=== PATIENT | female | born 1985 | race Caucasian/White ===

== ENCOUNTER 2020-12-15 09:43 | Emergency (ER) | payer BC, SELFPAY ==
--- NOTE | ~2020-12-15 | CT_ITS ---
EXAMINATION: CT ABDOMEN AND PELVIS WITHOUT CONTRAST CLINICAL INFORMATION: Epigastric pain and vomiting. Evaluate for obstruction. COMPARISON: Previous ultrasound from earlier the same day and CT of the abdomen and pelvis most recent March 2018 TECHNIQUE: Multidetector volumetric imaging was performed from the superior aspect of the liver through the pubic symphysis. Sagittal and coronal reformatted images were obtained on the technologist's workstation. This CT examination was performed using dose optimization techniques as appropriate, variously including the following: *Automated exposure control *Adjustment of mA and/or kV according to patient size (this includes techniques or standardized protocols for targeted exams where dose is matched to indication/reason for exam; i.e. extremities or head) *Use of iterative reconstruction technique DLP: 1107 mGy-cm FINDINGS: LUNG BASES: The visualized lung bases are unremarkable. LIVER, GALLBLADDER, AND BILIARY TREE: The liver is normal in size, shape, and attenuation. No focal hepatic lesion or biliary ductal dilatation is present. The gallbladder is unremarkable with no evidence of radiopaque gallstones, gallbladder wall thickening, or obvious pericholecystic inflammatory changes. PANCREAS: Unremarkable. SPLEEN: There is a small calcification with lucent center in the spleen that is stable and probably represents a cyst wall calcification.. ADRENAL GLANDS: Unremarkable. KIDNEYS AND URETERS: The kidneys are normal in size, shape, and attenuation. No hydronephrosis, hydroureter, or calculi seen. No perinephric stranding. BLADDER: Not optimally distended but appears unremarkable. GASTROINTESTINAL TRACT: There is mild diverticulosis of the colon. There is stool proximal colon questionable for mild constipation. No evidence of obstruction seen. The small and large bowel are otherwise unremarkable. The appendix is not identified and may been removed. The stomach is unremarkable. ABDOMINAL WALL: There is a small umbilical hernia containing fat. LYMPH NODES: Normal. VASCULAR: Unremarkable. PELVIC VISCERA: Unremarkable. OSSEOUS STRUCTURES: There is degenerative disc disease at L5-S1. CT/CT abdomen pelvis wo con IMPRESSION: No acute findings. Diverticulosis of the colon. No evidence of diverticulitis. Question mild constipation. No evidence of obstruction.
--- NOTE | ~2020-12-15 | US_ITS ---
EXAMINATION: US ABDOMEN LIMITED CLINICAL INFORMATION: Right upper quadrant and epigastric pain. COMPARISON: Previous CT of the abdomen and pelvis March 2018 TECHNIQUE: Real-time imaging of the right upper quadrant abdominal viscera. FINDINGS: PANCREAS: Normal. LIVER: The liver is normal in size. The liver contour is normal. Liver echotexture is slightly increased. No focal hepatic lesion. There is no intrahepatic biliary duct dilatation seen. GALLBLADDER: Normal. The gallbladder is physiologically distended without evidence of stones, sludge, polyps, wall thickening or pericholecystic fluid. COMMON BILE DUCT: Normal in caliber measuring 0.5 cm in diameter. RIGHT KIDNEY: Normal. No hydronephrosis. No renal calculi or focal parenchymal lesions. The kidney measures 13.6 cm in maximum dimension. FREE FLUID: None. US/US abdomen limited IMPRESSION: Slightly echogenic liver probably representing fatty infiltration. Otherwise unremarkable exam.
[2020-12-15 09:55] VITALS: BP 195/110; PULSE 93; RESP 20; TEMP 37.1; O2SAT 98; BMI 39.9
--- NOTE | 2020-12-15 10:15 | ED_ITS ---
HPI - Abdominal Pain General Chief Complaint: Abdominal Pain Stated Complaint: abd pain Time Seen by Provider: 12/15/20 10:15 Source: patient Mode of arrival: ambulatory Limitations: no limitations History of Present Illness HPI narrative: 35 yo female with chronic abdominal pain and issues with no real diagnosis here with 12 hours of nausea, constipation then a bout of stool, upper abdominal pain had anesthesia and started on keflex yesterday for dental procedure MD elicited complaint: abdominal pain Pertinent past history: other (chronic abdominal pain GI issues) Onset (ago): hour(s) (12) Pain Consistency: constant Location: epigastric Severity: severe Quality: cramping and aching Radiation: none Migration to: no migration Exacerbating factors: eating and movement Context: history of similar episodes (but milder and the pain usually moves down by now) Associated symptoms: nausea, diarrhea and constipation Related Data Previous Rx's Medication Instructions Recorded famotidine [Pepcid] 20 mg PO DAILY PRN #30 tab 12/15/20 lactulose 10 g PO DAILY PRN #600 ml 12/15/20 metoclopramide HCl [Reglan] 10 mg PO Q6H PRN #30 tab 12/15/20 Allergies Allergy/AdvReac Type Severity Reaction Status Date / Time Penicillins [PENICILLINS] Allergy Unknown HIVES Verified 12/15/20 10:34 clindamycin Allergy Abdominal Verified 12/15/20 10:34 Pain azithromycin [AZITHROMYCIN] AdvReac Unknown ABD PAIN Verified 12/15/20 10:34 TROPICAL FRUIT Allergy Unknown HIVES Uncoded 12/15/20 10:34 Review of Systems Review of Systems Constitutional : No Weight loss, No Fever, No Chills ENT/Mouth : No sore throat, No Rhinorrhea Eyes: No Swelling, No Redness Cardiovascular : No Chest Pain, No SOB, NoEdema Respiratory : No Cough, No Sputum, No Wheezing Gastrointestinal : Positive Nausea, Positive Vomiting, positive Diarrhea, positive abdominal Pain, No Hematochezia, No Melena Genitourinary : No Dysuria, No Urinary Frequency, No Hematuria, No Urgency Musculoskeletal : No joint pain, No Myalgias, No Joint Swelling Skin : No Skin Lesions, No rash Neuro : No Weakness, No Numbness, No Dizziness, No Headache Psych : No Anxiety/Panic, No Depression Heme/Lymph: No Bruising, No Lymphadenopathy Endocrine : No Polyuria, No Polydipsia All other systems reviewed and are negative. Physical Exam Vital Signs: Vital Signs: Last Vital Signs Temp 98.5 F 12/15/20 16:00 Pulse 72 12/15/20 16:00 Resp 16 12/15/20 16:00 BP 147/92 H 12/15/20 16:00 Pulse Ox 95 12/15/20 16:00 Body Mass Index 39.9 Appearance: Alert. Oriented X3. No acute distress. Eyes: Pupils equal, round and reactive to light. ENT: Pharynx dry MM mild Neck: Normal inspection. Neck supple. CVS: Normal heart rate and rhythm. Pulses normal. Respiratory: No respiratory distress. Breath sounds normal. Abdomen: Soft and moderate ttp in epigastric area no rebound, mild vol guarding Skin: Skin warm and dry. Normal skin color. Normal skin turgor. Extremities: No lower extremity edema. No calf ttp Neuro: Oriented X 3. No motor deficit. No sensory deficit. Course Course Course Narrative: patient is on phone in no distress at this time, no diarrhea no vomiting, hx of elevated WBC in the past - suspect she will be able to go home with supportive care on recheck still c/o pain returning, suspect this is chronic in nature she has hx of same in past will obtain CT Scan to r/o obstruction given she has hx of surgery in the past signed out to Dr. Drake pending CT scan results MDM - Abdominal Pain MDM Narrative Medical decision making narrative: 35 yo female with chronic abdominal pain and issues with no real diagnosis here with 12 hours of nausea, constipation then a bout of stool, upper abdominal pain had anesthesia and started on keflex yesterday for dental procedure at this time the patient will need labs, IVF, IV medications to treat symptoms, if significant pain persists or has lab abnormality will consider imaging, could be gastritis/enteritis Lab Data Result diagrams: 12/15/20 10:56 12/15/20 11:10 Labs: Lab Results 12/15/20 12/15/20 12/15/20 Range/Units 10:56 11:10 14:58 WBC 15.3 H (4.8-10.8) X10*3/uL RBC 4.18 L (4.20-5.50) X10*6/uL Hgb 13.2 (12.0-16.0) g/dl Hct 38.8 (37-47) % MCV 92.8 (80-98) fL MCH 31.6 (27.0-33.0) pg MCHC 34.0 (31.0-35.0) g/dl RDW 13.1 (11.0-16.0) % Plt Count 242 (160-400) X10*3/uL MPV 10.7 (9.4-12.3) fL Immature Gran % (Auto) 0.5 H (0.0-0.4) % Neut % (Auto) 80.4 H (45-73) % Lymph % (Auto) 14.5 L (20-40) % [place] % (Auto) 4.5 (2-11) % Eos % (Auto) 0.0 (0-4) % Baso % (Auto) 0.1 (0-2) % Lymph # (Auto) 2.2 (1.2-4.9) X10*3/uL [place] # (Auto) 0.7 (0.1-1.2) X10*3/uL Eos # (Auto) 0.0 (0.0-0.4) X10*3/uL Baso # (Auto) 0.0 (0.0-0.2) X10*3/uL Abs Immat Gran (auto) 0.08 H (0.00-0.03) X10*3/uL Absolute Neuts (auto) 12.3 H (2.0-8.3) X10*3/uL Absolute Nucleated RBC 0.000 (0.0-0.012) X10*3/uL Nucleated RBC % (auto) 0.0 (0.0-0.2) /100WBC Sodium 139 (135-145) mmol/L Potassium 4.1 (3.3-5.1) mmol/L Chloride 107 (96-108) mmol/L Carbon Dioxide 26 (22-29) mmol/L Anion Gap 10 L (12-20) BUN 10 (9-16) mg/dL Creatinine 0.77 (0.5-1.4) mg/dL Estim Creat Clear Calc 130.6 Estimated GFR > 60 Random Glucose 97 (60-115) mg/dL Calcium 9.7 (8.4-10.2) mg/dL Magnesium 1.8 (1.6-2.6) mg/dL Total Bilirubin 0.4 (0.0-1.0) mg/dL Direct Bilirubin 0.2 (0.0-0.5) mg/dL AST 32 H (5-31) U/L ALT 30 (0-31) U/L Alkaline Phosphatase 51 (39-117) U/L Total Protein 6.9 (6.5-8.0) g/dL Albumin 3.9 (3.5-5.0) g/dL Lipase 21 (8-78) U/L Urine Color YELLOW Urine Appearance CLOUDY Urine pH 6.0 (5.0-8.0) Ur Specific [place] >= 1.030 H (1.005-1.025) Urine Protein 1+ H (NEG-TRACE) MG/DL Urine Glucose (UA) NEG (NEG) MG/DL Urine Ketones NEG (NEG) MG/DL Urine Blood 3+ H (NEG) Urine Nitrite NEG (NEG) Ur Leukocyte Esterase NEG (NEG) Urine RBC 10-14 H (0) /HPF Urine WBC 0-2 (0-4) /HPF Ur Squamous Epith Cells 2+ /LPF Calcium Oxalate Crystal 1+ /LPF Urine Bacteria 1+ /LPF Urine Mucus 3+ /LPF Urine Test (NEGATIVE) 12/15/20 Range/Units 14:58 WBC (4.8-10.8) X10*3/uL RBC (4.20-5.50) X10*6/uL Hgb (12.0-16.0) g/dl Hct (37-47) % MCV (80-98) fL MCH (27.0-33.0) pg MCHC (31.0-35.0) g/dl RDW (11.0-16.0) % Plt Count (160-400) X10*3/uL MPV (9.4-12.3) fL Immature Gran % (Auto) (0.0-0.4) % Neut % (Auto) (45-73) % Lymph % (Auto) (20-40) % [place] % (Auto) (2-11) % Eos % (Auto) (0-4) % Baso % (Auto) (0-2) % Lymph # (Auto) (1.2-4.9) X10*3/uL [place] # (Auto) (0.1-1.2) X10*3/uL Eos # (Auto) (0.0-0.4) X10*3/uL Baso # (Auto) (0.0-0.2) X10*3/uL Abs Immat Gran (auto) (0.00-0.03) X10*3/uL Absolute Neuts (auto) (2.0-8.3) X10*3/uL Absolute Nucleated RBC (0.0-0.012) X10*3/uL Nucleated RBC % (auto) (0.0-0.2) /100WBC Sodium (135-145) mmol/L Potassium (3.3-5.1) mmol/L Chloride (96-108) mmol/L Carbon Dioxide (22-29) mmol/L Anion Gap (12-20) BUN (9-16) mg/dL Creatinine (0.5-1.4) mg/dL Estim Creat Clear Calc Estimated GFR Random Glucose (60-115) mg/dL Calcium (8.4-10.2) mg/dL Magnesium (1.6-2.6) mg/dL Total Bilirubin (0.0-1.0) mg/dL Direct Bilirubin (0.0-0.5) mg/dL AST (5-31) U/L ALT (0-31) U/L Alkaline Phosphatase (39-117) U/L Total Protein (6.5-8.0) g/dL Albumin (3.5-5.0) g/dL Lipase (8-78) U/L Urine Color Urine Appearance Urine pH (5.0-8.0) Ur Specific [place] (1.005-1.025) Urine Protein (NEG-TRACE) MG/DL Urine Glucose (UA) (NEG) MG/DL Urine Ketones (NEG) MG/DL Urine Blood (NEG) Urine Nitrite (NEG) Ur Leukocyte Esterase (NEG) Urine RBC (0) /HPF Urine WBC (0-4) /HPF Ur Squamous Epith Cells /LPF Calcium Oxalate Crystal /LPF Urine Bacteria /LPF Urine Mucus /LPF Urine Test NEGATIVE (NEGATIVE) Discharge Plan Discharge Clinical Impression: Nausea Abdominal pain Qualifiers: Abdominal location: epigastric Qualified Code(s): R10.13 - Epigastric pain Constipation Qualifiers: Constipation type: unspecified constipation type Qualified Code(s): K59.00 - Constipation, unspecified Instructions: Constipation (ED), Acute Nausea and Vomiting (ED), Abdominal Pain (ED) Additional Instructions: return to ED for any worsening symptoms or concerns Prescriptions: New metoclopramide HCl [Reglan] 10 mg tablet 10 mg PO Q6H PRN (Reason: nausea and vomiting) Qty: 30 RF: 0 famotidine [Pepcid] 20 mg tablet 20 mg PO DAILY PRN (Reason: abdominal discomfort) Qty: 30 RF: 0 lactulose 10 gram/15 mL (15 mL) solution 10 g PO DAILY PRN (Reason: constipation) Qty: 600 RF: 0 Referrals: De Spivey MD [Primary Care Provider] - 2 days Stand Alone Forms: Work/School Release [facility] Past Medical History Attestation statement: The following information was validated with the patient. Medical History (Updated 12/15/20 @ 16:36 by Joann Schwartz DO) Arthritis Chronic abdominal pain Surgical History (Updated 12/15/20 @ 10:34 by Joann Schwartz DO) History of laparoscopic appendectomy Social History Social History (Updated 12/15/20 @ 10:34 by Joann Schwartz DO) Alcohol intake: unknown Patient Tobacco Use Status: Never used Tobacco Smoked in Last 30 Days: No Use of substances other than those prescribed or required for medical reasons: No Advance Directives: No Advance Directives Information Provided: No Patient : No
[2020-12-15 11:00] LABS: MANUAL DIFF FLAG NO
[2020-12-15 11:06] LABS: Basophils Percent Auto 0.1 % (0-2); Hematocrit 38.8 % (37-47); Hemoglobin 13.2 g/dl (12.0-16.0); Imm Gran Abs Auto 0.08 X10*3/uL (0.00-0.03); Imm Gran Pct Auto 0.5 % (0.0-0.4); Lymphocytes Absolute Auto 2.2 X10*3/uL (1.2-4.9); Lymphocytes Percent Auto 14.5 % (20-40); Mean Corpuscular Hemoglobin 31.6 pg (27.0-33.0); Mean Corpuscular Volume 92.8 fL (80-98); Mean Platelet Volume 10.7 fL (9.4-12.3); Monocytes Absolute Auto 0.7 X10*3/uL (0.1-1.2); Monocytes Percent Auto 4.5 % (2-11); Neutrophils Absolute Auto 12.3 X10*3/uL (2.0-8.3); Neutrophils Percent Auto 80.4 % (45-73); Platelet Count 242 X10*3/uL (160-400); Red Blood Count 4.18 X10*6/uL (4.20-5.50); Red Cell Distribution Width 13.1 % (11.0-16.0); White Blood Count 15.3 X10*3/uL (4.8-10.8)
[2020-12-15] MEDS: Famotidine/PF 20 MG/2 ML VIAL IVPUSH (11:34)
[2020-12-15] MEDS: Metoclopramide HCl 10 MG/2 ML VIAL IVPUSH (11:34)
[2020-12-15] MEDS: 0.9 % Sodium Chloride 1,000 ML 999 ML IVCONT (11:34)
[2020-12-15] MEDS: Ketorolac Tromethamine 30 MG/ML VIAL IVPUSH (11:34)
[2020-12-15 11:49] LABS: Alanine Aminotransferase 30 U/L (0-31); Albumin Level 3.9 g/dL (3.5-5.0); Alkaline Phosphatase 51 U/L (39-117); Anion Gap 10 (12-20); Aspartate Amino Transferase 32 U/L (5-31); Bilirubin Direct 0.2 mg/dL (0.0-0.5); Bilirubin Total 0.4 mg/dL (0.0-1.0); Blood Urea Nitrogen 10 mg/dL (9-16); Calcium 9.7 mg/dL (8.4-10.2); Carbon Dioxide 26 mmol/L (22-29); Chloride 107 mmol/L (96-108); Creatinine Clr Calc Pharmacy 130.6; Estimated Glomerular Filt Rate > 60; Glucose Random 97 mg/dL (60-115); Lipase 21 U/L (8-78); Magnesium 1.8 mg/dL (1.6-2.6); Potassium 4.1 mmol/L (3.3-5.1); Sodium 139 mmol/L (135-145); Total Protein 6.9 g/dL (6.5-8.0)
[2020-12-15 12:00] VITALS: BP 140/88; PULSE 92; RESP 18; TEMP 36.8; O2SAT 96
[2020-12-15 14:20] VITALS: BP 138/96; PULSE 82; RESP 18; TEMP 36.6; O2SAT 97
[2020-12-15 15:11] LABS: Glucose Urine UA NEG (NEG); Leukocyte Esterase Urine NEG (NEG); Nitrite Urine NEG (NEG); Specific Gravity - Urine >= 1.030 (1.005-1.025); Urine Blood 3+ (NEG); Urine Ketones NEG (NEG); Urine Protein 1+ MG/DL (NEG-TRACE)
[2020-12-15 15:13] LABS: Appearance Urine CLOUDY; Color Urine YELLOW
[2020-12-15 15:20] LABS: UPreg QC Valid YES; Urine Pregnancy NEGATIVE (NEGATIVE)
[2020-12-15 15:23] LABS: Bacteria Urine 1+ /LPF; Calcium Oxalate Crystals Urine 1+ /LPF; Mucus Urine 3+ /LPF; Squamous Epithelial Cell Urine 2+ /LPF; WBC Urine 0-2 /HPF (0-4)
[2020-12-15 15:35] VITALS: RESP 18
[2020-12-15] MEDS: Morphine Sulfate 4 MG/ML CARTRIDGE IVPUSH (15:35)
[2020-12-15 15:39] VITALS: BP 151/92; PULSE 81; RESP 18; O2SAT 97
[2020-12-15 16:00] VITALS: BP 147/92; PULSE 72; RESP 16; TEMP 36.9; O2SAT 95
== END 2020-12-15 17:35 | disposition home or self-care (01) ==
PROVIDERS: Emergency Medicine; Emergency Provider Emergency Medicine; PCP Family Medicine
DX: R10.13 Epigastric pain (principal); K59.00 Constipation, unspecified; R11.2 Nausea with vomiting, unspecified
CPT/HCPCS: 36415; 74176; 76705; 80048; 80076; 81001; 81025; 83690; 83735; 85025; 96361; 96374; 96375; 99284; 99285; J1885; J2270; J2765

== ENCOUNTER 2020-12-16 16:53 | Emergency (ER) | payer BC, SELFPAY ==
[2020-12-16 18:44] VITALS: BP 151/90; PULSE 96; RESP 18; TEMP 36.9; O2SAT 98; BMI 39.9
== END 2020-12-16 23:25 | disposition left against medical advice (07) ==
PROVIDERS: Emergency Provider Emergency Medicine; PCP Family Medicine
DX: R07.9 Chest pain, unspecified (principal)
CPT/HCPCS: 99281; 99282

== ENCOUNTER 2023-08-24 13:52 | Emergency (ER) | payer SELFPAY ==
--- NOTE | ~2023-08-24 | XR_ITS ---
Study: Left ankle radiographs. Left foot radiographs. HISTORY: Pain along the medial malleolus. Pain below left fifth metatarsal. COMPARISON: None available. TECHNIQUE: 2 radiographs of the left ankle were performed. 3 radiographs of the left foot were performed. FINDINGS: Left ankle: The ankle mortise is maintained. The distal fibula and distal tibia are intact. There is no fracture or dislocation. There is mild soft tissue swelling over the medial malleolus. Remaining soft tissue is normal in appearance. Left foot: No fracture or dislocation. Joint spaces are maintained. Regional soft tissue is normal in appearance. XR/XR foot LT min 3V IMPRESSION: No fracture or dislocation. Mild soft tissue swelling over the medial malleolus.
--- NOTE | ~2023-08-24 | XR_ITS ---
Study: Left ankle radiographs. Left foot radiographs. HISTORY: Pain along the medial malleolus. Pain below left fifth metatarsal. COMPARISON: None available. TECHNIQUE: 2 radiographs of the left ankle were performed. 3 radiographs of the left foot were performed. FINDINGS: Left ankle: The ankle mortise is maintained. The distal fibula and distal tibia are intact. There is no fracture or dislocation. There is mild soft tissue swelling over the medial malleolus. Remaining soft tissue is normal in appearance. Left foot: No fracture or dislocation. Joint spaces are maintained. Regional soft tissue is normal in appearance. XR/XR ankle LT min 3V IMPRESSION: No fracture or dislocation. Mild soft tissue swelling over the medial malleolus.
[2023-08-24 13:58] VITALS: BP 186/115; PULSE 100; RESP 18; TEMP 36.6; O2SAT 97; BMI 38.7
--- NOTE | 2023-08-24 13:58 | ED_ITS ---
HPI - Extremity Injury (Lower) General Chief Complaint: Extremity Problem Stated Complaint: broken foot Time Seen by Provider: 08/24/23 17:05 Source: patient Mode of arrival: ambulatory Limitations: no limitations History of Present Illness HPI Narrative: Patient is a 37-year-old female presenting to the emergency department with complaint of left ankle and foot pain and swelling for the past 2 years. Denies any known precipitating injury or other trauma. 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 Symptoms improve with pressure wrap, elevation. Has only been taking Tylenol as ibuprofen irritates her stomach. Denies weakness, numbness, tingling. MD complaint: other (ankle and foot pain and swelling) Injury: Left: ankle and foot Severity: moderate Relieving factors: rest Exacerbating factors: weight bearing Associated symptoms: swelling Other symptoms: none Treatments prior to arrival: bandage and other Related Data Previous Rx's Medication Instructions Recorded famotidine 20 mg tablet (Pepcid) 20 mg PO DAILY PRN abdominal 12/15/20 discomfort #30 tabs hyoscyamine sulfate 0.125 mg tablet 0.125 mg PO QID PRN dyspepsia #10 12/15/20 tabs lactulose 10 gram/15 mL (15 mL) 10 g (15 mL) PO DAILY PRN 12/15/20 oral solution constipation #600 mL metoclopramide HCl 10 mg tablet 10 mg PO Q6H PRN nausea and 12/15/20 (Reglan) vomiting #30 tabs compress.stocking,knee,reg,lrg #2 ea 08/24/23 diclofenac sodium 1 % topical gel 2 g topical QID #100 grams 08/24/23 Allergies Allergy/AdvReac Type Severity Reaction Status Date / Time Penicillins [PENICILLINS] Allergy Unknown HIVES Verified 12/15/20 10:34 clindamycin Allergy Abdominal Verified 12/15/20 10:34 Pain azithromycin [AZITHROMYCIN] AdvReac Unknown ABD PAIN Verified 12/15/20 10:34 TROPICAL FRUIT Allergy Unknown HIVES Uncoded 12/15/20 10:34 Review of Systems Review of Systems: As per HPI. Yes all other systems are reviewed and are negative Constitutional: Constitutional: Reports as per HPI PMFSH Past Medical History Medical History (Updated 08/24/23 @ 18:05 by Luci Rose NP) Arthritis Chronic abdominal pain Surgical History (Updated 12/15/20 @ 10:34 by Eli Schwartz DO) History of laparoscopic appendectomy Social History Social History (Updated 12/15/20 @ 10:34 by Eli Schwartz DO) Alcohol intake: unknown Patient Tobacco Use Status: Never used Tobacco Advance Directives: No Advance Directives Information Provided: Yes Physical Exam Vital Signs: Vital Signs: Last Vital Signs Temp 98 F 08/24/23 13:58 Pulse 100 08/24/23 13:58 Resp 18 08/24/23 13:58 BP 186/115 H 08/24/23 13:58 Pulse Ox 97 08/24/23 13:58 O2 Del Method Room Air 08/24/23 13:58 BMI result Body Mass Index 38.7 Vital signs have been reviewed and appear to be correct. Blood pressure elevated. Heart rate normal. Respiratory rate normal. Temperature normal. Oxygen saturation normal. Const: General: cooperative, healthy appearing and no acute distress Orientation/consciousness: oriented to person, oriented to place, oriented to time and patient oriented x3 Limitations: no limitations HEENT: Head: Yes normocephalic and Yes atraumatic Ears: external ears normal General nose exam: Normal external nose present Face and sinus: Yes face symmetric Mouth: oropharynx normal and moist mucous membranes Throat: Yes uvula midline Eyes: Pupils: Equal, round and reactive pupils present Neck: Neck: Yes normal visual inspection and Yes supple Resp: Effort & Inspection: normal respiratory effort and able to speak in complete sentences Auscultation: clear to auscultation bilaterally Cardio: Rate: regular rate Rhythm: regular rhythm Heart sounds: S1 normal heart sound present and S2 normal heart sound present GI: Palpation (GI): Soft to palpation and nontender Auscultation: normoactive bowel sounds : General: Yes no CVA tenderness Back/Spine/Pelvis: Back: no CVA tenderness Skin: General skin exam: elasticity normal and turgor normal Neuro: General: oriented to person, oriented to place, oriented to time, patient oriented x3, moves all extremities, no focal motor deficits and CN's II- XI intact bilaterally Cranial nerves: Yes Equal, round and reactive pupils present Cognition (Neuro): normal cognition Extrem: General: Yes full ROM, Yes normal exam except as noted, Yes no pedal edema and Yes no calf tenderness Left lower extremity: ankle Details: tenderness Location: of the lateral malleolus and of the medial malleolus, swelling Details: medially (mild) and normal ROM; no crepitus and achilles tendon exam normal and foot Details: normal capillary refill, normal to inspection, tenderness Location: of the dorsal foot Location: proximally (base of 5th metatarsal) and of the lateral foot Location: at the base of the 5th metatarsal, toes with normal ROM, no edema and vascular exam Details: dorsalis pedis pulse present and posterior tibial pulse present Psych: Mental Status: mental status grossly normal Affect: normal affect Thought process: Normal thought process present Course Course Course Narrative: RME:?37 yo female here for eval of stress fracture in left foot . reports pain to the base of her fifth metatarsal and along the left medial malleolus and crunchy feeling which has been ongoing for years intermittently. States that wrapping the area improves pain. 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 Denies injury/trauma to the left foot. Taking Tylenol, last dose last night. xrays ordered Full HPI, ROS and PE to be performed by the primary ED provider. Medical Decision Making Medical Decision Making [facility] Narrative: Patient is a 37-year-old female presenting to the emergency department with complaint of left ankle and foot pain and swelling for the past 2 years. On exam patient is awake, A+Ox3, hypertensive, VS otherwise WNL, afebrile, normal neurological exam without focal deficits, physical exam findings as above. Given reported symptoms and physical exam findings, initial differential includes stress fracture, sprain, ligamentous injury, dependent edema. Patient reports known history of hypertension but states she is not on any antihypertensive medications at this time. Instructed patient to follow up with PCP regarding this and advised her on the risks of hypertension up to and including . X-ray left ankle and foot notable for no evidence of fracture, mild swelling medial ankle. My interpretation is in agreement with the radiologist's interpretation. Discussed with patient that symptoms are likely worsened by dependent edema due to standing for extended periods of time at work. Will send prescriptions for diclofenac gel as well as compression socks. Will refer to orthopedics for further evaluation and management. Patient specifically requesting crutches. Discussed with patient that due to the chronic nature of her pain, crutches pose a greater risk than benefit, as she has been able to bear weight on the affected ankle. Return precautions discussed. Advised patient to continue with Tylenol. Patient verbalized understanding of and agreement with plan. Differential Diagnosis Differential Diagnoses: The differential diagnosis associated with the presentation includes As per MDM. Independent Interpretation I performed an independent interpretation of an: Plain X-Ray Interpretation: No evidence of fracture left ankle or foot Radiology Impression Discussion of test interpretation with radiology: I have reviewed the radiologist's reading. Radiologist Impression: FINDINGS: Left ankle: The ankle mortise is maintained. The distal fibula and distal tibia are intact. There is no fracture or dislocation. There is mild soft tissue swelling over the medial malleolus. Remaining soft tissue is normal in appearance. Left foot: No fracture or dislocation. Joint spaces are maintained. Regional soft tissue is normal in appearance. XR/XR foot LT min 3V IMPRESSION: No fracture or dislocation. Mild soft tissue swelling over the medial malleolus. External Record Review External record reviewed: Inpatient record, Office record and Outpatient record Prescription Management I considered prescription management with: Pain Medication and Other Discharge Plan Discharge Clinical Impression: Ankle pain, left, Foot pain, left Patient Disposition: Home, Self-Care Instructions: Arthralgia (ED), AUTUMN [place] (DC) Additional Instructions: You have been evaluated in the emergency department today for left foot and ankle pain. Your evaluation, including x-rays, did not find evidence of medical conditions requiring emergent intervention at this time. Please rest, ice, and elevate your ankle, and resume normal activities as tolerated. You are being prescribed compression stockings to wear while working to decrease swelling. You are being prescribed diclofenac gel which you can apply topically for pain. You can continue to use Tylenol. You are being referred to [facility] for further evaluation and management of your symptoms. Please call their office to schedule an appointment. Return to the emergency department if you experience worsening pain, numbness, tingling, change of color in your foot, or any other concerning symptoms. Prescriptions: New diclofenac sodium 1 % gel 2 g topical QID Qty: 100 0RF Rx Instructions: apply to left ankle and foot (DME) compress.stocking,knee,reg,lrg Misc See Rx Instructions .Route Qty: 2 0RF Rx Instructions: As directed No Action metoclopramide HCl [Reglan] 10 mg tablet 10 mg PO Q6H PRN (Reason: nausea and vomiting) Qty: 30 0RF famotidine [Pepcid] 20 mg tablet 20 mg PO DAILY PRN (Reason: abdominal discomfort) Qty: 30 0RF lactulose 10 gram/15 mL (15 mL) solution 10 g PO DAILY PRN (Reason: constipation) Qty: 600 0RF hyoscyamine sulfate 0.125 mg tablet 0.125 mg PO QID PRN (Reason: dyspepsia) Qty: 10 0RF Referrals: [facility] [place] [facility] [Provider Group]
== END 2023-08-24 18:56 | disposition home or self-care (01) ==
PROVIDERS: Emergency Provider Emergency Medicine; PCP Family Medicine
DX: M25.572 Pain in left ankle and joints of left foot (principal); M79.672 Pain in left foot; M25.472 Effusion, left ankle
CPT/HCPCS: 73610; 73630; 99282; 99283